=== PATIENT | female | born 1965 | race Caucasian/White ===

== ENCOUNTER → 2018-10-29 22:01 | Outpatient (CLI) | payer BC | END | disposition home or self-care (01) | LOC: D.MAMMO 14:00 | PROVIDERS: ATTEND Emergency Medicine | DX: Z12.31 Encounter for screening mammogram for malignant neoplasm of breast (principal) ==

== ENCOUNTER → 2018-11-26 20:00 | Outpatient (CLI) | payer BC | END | disposition home or self-care (01) | LOC: D.MAMMO 11:00 | PROVIDERS: ATTEND Emergency Medicine | DX: R92.8 Other abnormal and inconclusive findings on diagnostic imaging of breast (principal) ==

== ENCOUNTER 2019-06-30 09:00 | Outpatient (CLI) | payer BC | END 2019-06-30 10:00 | disposition home or self-care (01) | LOC: D.MAMMO 09:00 | PROVIDERS: ATTEND Emergency Medicine | DX: R92.8 Other abnormal and inconclusive findings on diagnostic imaging of breast (principal) ==